=== PATIENT | male | born 1935 | race Caucasian/White ===

== ENCOUNTER → 2019-12-04 | Outpatient (CLI) | payer MEDICARE | END | disposition home or self-care (01) | LOC: CFH 14:47 | PROVIDERS: ATTEND Nurse Practitioner Family | DX: I08.3 Combined rheumatic disorders of mitral, aortic and tricuspid valves (principal); R01.1 Cardiac murmur, unspecified | CPT/HCPCS: 93306 ==

== ENCOUNTER 2019-12-11 17:50 | Emergency (ER) | payer MEDICARE ==
[~2019-12-11] VITALS: Ht 160 cm; Wt 95.0 kg
--- NOTE | 2019-12-11 18:13 | NUR ---
CASE MONITOR: PT OUT OF RADIOLOGY AND TO ROOM AT THIS TIME. ELIEZER
--- NOTE | 2019-12-11 18:34 | NUR ---
First contact with pt. Pt c/o black tarry stools and abd "pressure" x1 month. Pt denies pain. Pt placed in gown and positioned for comfort in bed with warm blanket. Continuous oxygen and BP Monitors applied, all safety measures observed.
[2019-12-11 18:37] LABS: BASOPHILS # (AUTO) 0.06 x10^3/uL (0-0.1); BASOPHILS % (AUTO) 1 % (0-1); EOSINOPHILS # (AUTO) 0.23 x10^3/uL (0-0.4); EOSINOPHILS % (AUTO) 3 % (1-7); LYMPHOCYTES # (AUTO) 1.33 x10^3/uL (1-3.4); LYMPHOCYTES % (AUTO) 18 % (22-44); MD NO; MEAN CORPUSCULAR HEMOGLOBIN 30.8 pg (27.0-34.8); MEAN CORPUSCULAR HGB CONC 33.3 g/dL (32.4-35.8); MEAN CORPUSCULAR VOLUME 92.5 fL (80-100); MEAN PLATELET VOLUME 7.9 fL (7.4-10.4); MONOCYTES # (AUTO) 0.65 x10^3/uL (0.2-0.8); MONOCYTES % (AUTO) 9 % (2-9); NEUTROPHILS # (AUTO) 5.03 x10^3/uL (1.8-6.8); NEUTROPHILS % (AUTO) 69 % (42-75); PLATELET COUNT 212 x10^3/uL (130-400); RED BLOOD COUNT 4.85 x10^6/uL (3.82-5.3); RED CELL DISTRIBUTION WIDTH 13.9 % (9.6-15.2)
[2019-12-11 18:46] LABS: ALANINE AMINOTRANSFERASE 23 U/L (12-78); ALBUMIN 3.5 g/dL (3.4-5.0); ANION GAP 5 mmol/L (5-15); CALCIUM 9.6 mg/dL (8.5-10.1); CHLORIDE 106 mmol/L (98-107); CREATININE 0.74 mg/dL (0.55-1.02)
[2019-12-11] MEDS ORDERED: IRBE150T9 PO (18:47)
[2019-12-11] MEDS ORDERED: FLUT15.845 NAS (18:47)
[2019-12-11] MEDS ORDERED: METH5TAB6 PO (18:47)
[2019-12-11] MEDS ORDERED: ATOR10TA PO (18:47)
[2019-12-11] MEDS ORDERED: OXYB5TAB10 PO (18:47)
[2019-12-11] MEDS ORDERED: MAGN400T36 PO (18:47)
[2019-12-11] MEDS ORDERED: DOFE125C PO (18:47)
[2019-12-11] MEDS ORDERED: FEXO1TAB29 PO (18:47)
[2019-12-11] MEDS ORDERED: APIX5TAB PO (18:47)
[2019-12-11] MEDS ORDERED: FURO20TA3 PO (18:47)
[2019-12-11] MEDS ORDERED: PANT40TA5 PO (18:47)
[2019-12-11] MEDS ORDERED: AMLO10TA8 PO (18:47)
[2019-12-11] MEDS ORDERED: POTA10TA31 PO (18:47)
[2019-12-11 18:48] LABS: ALKALINE PHOSPHATASE 95 U/L (45-117); BILIRUBIN,TOTAL 0.5 mg/dL (0.2-1.0); TOTAL PROTEIN 7.2 g/dL (6.4-8.2)
--- NOTE | 2019-12-11 19:00 | NUR ---
Report from Allie DIAZ
--- NOTE | 2019-12-11 19:30 | NUR ---
Pt states she is allergic to iodine, Dr Noel informed, asjusting order to CT without contrast, call placed to CT department to inform of update
--- NOTE | 2019-12-11 19:31 | NUR ---
Pt assisted to restroom at this time, pt states her "right knee is buckling from sitting in gurney." Pt provided with chair to sit in next to guralderson, pt provided with ice pack and pillow per request.
[2019-12-11] MEDS ORDERED: MAALOX/HYOSCYAMINE/LIDOCAINE 45 ML BTL ONE (20:41)
[2019-12-11] MEDS ORDERED: MAALOX/HYOSCYAMINE/LIDOCAINE 45 ML BTL PO ONE (21:00)
[2019-12-11 21:13] VITALS: BP 142/62
== END 2019-12-11 21:18 | disposition home or self-care (01) ==
LOC: ED 18:20
DX: K29.01 Acute gastritis with bleeding (principal)
CPT/HCPCS: 36415; 74021; 74176; 80053; 85025; 86850; 86900; 99285

== ENCOUNTER 2020-07-26 10:13 | Emergency (ER) | payer MEDICARE ==
[~2020-07-26] VITALS: Ht 160 cm; Wt 92.7 kg
[~2020-07-26 10:13] MED LIST: AMLO-211 PO; APIX5TAB PO; ATOR10TA PO; DOFE125C PO; FEXO1TAB29 PO; FLUT15.845 NAS; FURO20TA3 PO; IRBE150T9 PO; MAGN400T36 PO; METH5TAB6 PO; OXYB5TAB10 PO; PANT40TA6 PO; POTA10TA31 PO
[2020-07-26 11:34] LABS: BASOPHILS % (AUTO) 1 % (0-1); EOSINOPHILS % (AUTO) 2 % (1-7); LYMPHOCYTES % (AUTO) 16 % (22-44); MEAN CORPUSCULAR HEMOGLOBIN 31.1 pg (27.0-34.8); MEAN PLATELET VOLUME 7.5 fL (7.4-10.4); MONOCYTES % (AUTO) 9 % (2-9); NEUTROPHILS % (AUTO) 73 % (42-75); PLATELET COUNT 189 x10^3/uL (130-400); RED BLOOD COUNT 4.87 x10^6/uL (3.82-5.3); RED CELL DISTRIBUTION WIDTH 13.5 % (9.6-15.2)
[2020-07-26 11:41] LABS: ALBUMIN 3.3 g/dL (3.4-5.0); CALCIUM 9.5 mg/dL (8.5-10.1); CHLORIDE 106 mmol/L (98-107); MD NO
--- NOTE | 2020-07-26 11:43 | NUR ---
BP CUFF, PULSE OX IN PLACE. BSC IN ROOM WITH HAT COLLECTION FOR STOOL. PT ABLE TO PROVIDE UA, NO STOOL AT THIS TIME. UA SENT TO LAB. CALL LIGHT WITHIN REACH. PT AND FAMILY UPDATED ON POC.
[2020-07-26 11:46] LABS: ALANINE AMINOTRANSFERASE 26 U/L (12-78); ALKALINE PHOSPHATASE 117 U/L (45-117); BILIRUBIN,TOTAL 0.8 mg/dL (0.2-1.0)
[2020-07-26 11:59] LABS: MICROSCOPIC INDICATED
[2020-07-26 12:04] LABS: ANION GAP 5 mmol/L (5-15)
[2020-07-26 12:49] LABS: CLOSTRIDIUM DIFFICILE ANTIGEN NEGATIVE; CLOSTRIDIUM DIFFICILE TOXIN NEGATIVE (Negative)
--- NOTE | 2020-07-26 12:57 | NUR ---
ALL RESULTS BACK, PT FOR RECHECK.
--- NOTE | 2020-07-26 13:27 | NUR ---
ADD ON ORDER FOR CT.
--- NOTE | 2020-07-26 14:34 | NUR ---
PT IN CT
[2020-07-26] MEDS ORDERED: OMNIPAQUE 350 MG/ML, 100ML BOTTLE ONE (15:09)
[2020-07-26 15:47] VITALS: BP 121/51
== END 2020-07-26 15:51 | disposition home or self-care (01) ==
LOC: ED 15:10
DX: R19.7 Diarrhea, unspecified (principal); R11.0 Nausea; R10.9 Unspecified abdominal pain; I10 Essential (primary) hypertension; K21.9 Gastro-esophageal reflux disease without esophagitis
CPT/HCPCS: 36415; 74177; 80053; 81001; 83690; 85025; 87077; 87086; 87186; 87324; 99285; Q9967

== ENCOUNTER → 2020-09-20 | Outpatient (CLI) | payer MEDICARE | END | disposition home or self-care (01) | LOC: CFH 09:40 | PROVIDERS: ATTEND Internal Medicine Clinical Cardiac Electrophysiology | DX: I08.3 Combined rheumatic disorders of mitral, aortic and tricuspid valves (principal); I11.9 Hypertensive heart disease without heart failure | CPT/HCPCS: 93306 ==

== ENCOUNTER → 2020-10-21 | Outpatient (CLI) | payer MEDICARE ==
[~2020-10-21] MED LIST changes: +REGADENOSON 0.4 MG/5 ML SYRINGE ONE
== END | disposition home or self-care (01) ==
LOC: CFH 08:03
PROVIDERS: ATTEND Internal Medicine Clinical Cardiac Electrophysiology
DX: R07.89 Other chest pain (principal)
CPT/HCPCS: 78452; 93017; A9502; J2785